=== PATIENT | male | born 1970 | race African-American/Black ===

== ENCOUNTER 2018-02-26 14:13 | Emergency (ER) | payer OTHER ==
[2018-02-26 15:45] LABS: Bilirubin,Urine NEG (Negative); Blood,Urine NEG (Negative); Color,Urine Yellow (Yellow); Mucus,Urine FEW /HPF; Protein,Urine <15 mg/dL mg/dL (Negative); Urobilinogen,Urine < 2.0 mg/dL (<2.0)
[2018-02-26 15:53] LABS: Basophils # (Auto) 0.1 K/mm3 (0.0-0.1); Eosinophils # (Auto) 0.1 K/mm3 (0.0-0.4); Eosinophils % (Auto) 0.9 % (0.0-4.3); Hematocrit 45.4 % (35.5-45.6); Hemoglobin 14.3 gm/dl (11.8-15.2); Lymphocytes # (Auto) 1.5 K/mm3 (1.2-5.4); Lymphocytes % (Auto) 18.4 % (13.4-35.0); Mean Corpuscular HGB Conc 32 % (32-34); Mean Corpuscular Volume 71 fl (84-94); Monocytes # (Auto) 0.5 K/mm3 (0.0-0.8); Monocytes % (Auto) 6.1 % (0.0-7.3); Platelet Count 384 K/mm3 (140-440); Red Blood Count 6.43 M/mm3 (3.65-5.03); Red Cell Distribution Width 14.6 % (13.2-15.2)
[2018-02-26 15:54] LABS: Mean Corpuscular Hemoglobin 22 pg (28-32)
[2018-02-26 15:56] LABS: Amphetamine Screen,Urine PRESUMPTIVE NEGATIVE; Benzodiazepines Screen,Urine PRESUMPTIVE NEGATIVE; Cannabinoid Screen,Urine PRESUMPTIVE NEGATIVE; Cocaine Screen,Urine PRESUMPTIVE NEGATIVE; Methadone Screen,Urine PRESUMPTIVE NEGATIVE; Opiate Screen,Urine PRESUMPTIVE NEGATIVE
[2018-02-26 16:05] LABS: BUN/Creatinine Ratio 13; Blood Urea Nitrogen 10 mg/dL (9-20); Calcium 9.7 mg/dL (8.4-10.2); Hemolysis Index 1
[2018-02-26] MEDS ORDERED: ZOFRAN ODT PO PRN (17:30)
[2018-02-26] MEDS ORDERED: HALDOL IM PRN (17:30)
[2018-02-26] MEDS ORDERED: ATIVAN IM PRN (17:30)
[2018-02-26] MEDS ORDERED: TYLENOL PO PRN (17:30)
--- NOTE | 2018-02-26 17:35 | Emergency Department Report ---
ED Psych HPI - General Chief Complaint: Psych Stated Complaint: MH Time Seen by Provider: 02/26/18 16:25 Source: patient, EMS (ems notes not available at time of chart dictation), RN notes reviewed Mode of arrival: Ambulatory Limitations: No Limitations - History of Present Illness Initial Comments: This is a 47-year-old male who is unknown to this provider previously who presents to the ER with a complaint of depression, suicidality, plan to overdose. His symptoms do not radiate anywhere, and he indicates no exacerbating or relieving factors. He denies headache, neck pain, chest pain, urinary symptoms. He denies access to guns, firearms. He reports that he is hungry and would like to eat. He also reports that his abdomen is "cramping" because of his anxiety. MD Complaint: suicidal ideation, feels depressed -: Gradual Associated Psychiatric Symptoms: suicidal ideation History of same: Yes Quality: constant Improves With: none Worsens With: none Associated Symptoms: denies: confusion, headache, shortness of breath, vomiting , syncope, insomnia If Self Harm: admits thoughts of, has plan, has acted on plan (in the past) - Related Data Allergies Allergy/AdvReac Type Severity Reaction Status Date / Time No Known Allergies Allergy Unverified 02/26/18 15:02 ED Review of Systems ROS: Stated complaint: MH Other details as noted in HPI Comment: All other systems reviewed and negative ED Past Medical Hx - Past Medical History Previous Medical History?: Yes Hx Psychiatric Treatment: Yes (Suicide attempt) - Surgical History Past Surgical History?: Yes Hx Appendectomy: Yes - Social History Smoking Status: Current Every Day Smoker Substance Use Type: Alcohol ED Physical Exam - General Limitations: No Limitations General appearance: alert, in no apparent distress - Head Head exam: Present: atraumatic, normocephalic - Eye Eye exam: Present: normal appearance, EOMI. Absent: nystagmus - ENT ENT exam: Present: normal exam, normal orophraynx, mucous membranes moist, normal external ear exam - Neck Neck exam: Present: normal inspection, full ROM - Respiratory Respiratory exam: Present: normal lung sounds bilaterally. Absent: respiratory distress - Cardiovascular Cardiovascular Exam: Present: regular rate, normal rhythm, normal heart sounds. Absent: bradycardia, tachycardia, irregular rhythm, systolic murmur, diastolic murmur, rubs, gallop - GI/Abdominal GI/Abdominal exam: Present: soft, normal bowel sounds. Absent: distended, tenderness, guarding, rebound, rigid, pulsatile mass - Rectal Rectal exam: Present: deferred - Extremities Exam Extremities exam: Present: normal inspection, full ROM, normal capillary refill. Absent: pedal edema, joint swelling, calf tenderness - Back Exam Back exam: Present: normal inspection, full ROM. Absent: tenderness, CVA tenderness (R), paraspinal tenderness, vertebral tenderness - Neurological Exam Neurological exam: Present: alert, oriented X3, CN II-XII intact, normal gait, other (Extraocular movements intact. Tongue midline. No facial droop. Facial sensation intact to light touch in the V1, V2, V3 distribution bilaterally. 5 and 5 strength in 4 extremities.. Sensation is intact to light touch in 4 extremities.). Absent: motor sensory deficit - Psychiatric Psychiatric exam: Present: suicidal ideation - Skin Skin exam: Present: warm, dry, intact, normal color. Absent: rash ED Course Vital Signs 02/26/18 02/26/18 15:02 15:31 Temperature 98.1 F Pulse Rate 69 Respiratory 18 18 Rate Blood Pressure 136/93 O2 Sat by Pulse 98 99 Oximetry ED Medical Decision Making - Lab Data Result diagrams: 02/26/18 15:34 02/26/18 15:34 Vital Signs 02/26/18 02/26/18 15:02 15:31 Temperature 98.1 F Pulse Rate 69 Respiratory 18 18 Rate Blood Pressure 136/93 O2 Sat by Pulse 98 99 Oximetry Lab Results 02/26/18 02/26/18 02/26/18 Range/Units 15:17 15:17 15:34 WBC (4.5-11.0) K/mm3 RBC (3.65-5.03) M/mm3 Hgb (11.8-15.2) gm/dl Hct (35.5-45.6) % MCV (84-94) fl MCH (28-32) pg MCHC (32-34) % RDW (13.2-15.2) % Plt Count (140-440) K/mm3 Lymph % (Auto) (13.4-35.0) % [place] % (Auto) (0.0-7.3) % Eos % (Auto) (0.0-4.3) % Baso % (Auto) (0.0-1.8) % Lymph # (1.2-5.4) K/mm3 [place] # (0.0-0.8) K/mm3 Eos # (0.0-0.4) K/mm3 Baso # (0.0-0.1) K/mm3 Seg Neutrophils % (40.0-70.0) % Seg Neutrophils # (1.8-7.7) K/mm3 Sodium (137-145) mmol/L Potassium (3.6-5.0) mmol/L Chloride (98-107) mmol/L Carbon Dioxide (22-30) mmol/L Anion Gap mmol/L BUN (9-20) mg/dL Creatinine (0.8-1.5) mg/dL Estimated GFR ml/min BUN/Creatinine Ratio % Glucose (75-100) mg/dL Calcium (8.4-10.2) mg/dL Urine Color Yellow (Yellow) Urine Turbidity Clear (Clear) Urine pH 6.0 (5.0-7.0) Ur Specific [place] 1.015 (1.003-1.030) Urine Protein <15 mg/dl (Negative) mg/dL Urine Glucose (UA) Neg (Negative) mg/dL Urine Ketones Tr (Negative) mg/dL Urine Blood Neg (Negative) Urine Nitrite Neg (Negative) Urine Bilirubin Neg (Negative) Urine Urobilinogen < 2.0 (<2.0) mg/dL Ur Leukocyte Esterase Neg (Negative) Urine WBC (Auto) 1.0 (0.0-6.0) /HPF Urine RBC (Auto) 1.0 (0.0-6.0) /HPF Urine Mucus Few /HPF Salicylates < 0.3 L (2.8-20.0) mg/dL Urine Opiates Screen Presumptive negative Urine Methadone Screen Presumptive negative Acetaminophen (10.0-30.0) ug/mL Ur Barbiturates Screen Presumptive negative Ur Phencyclidine Scrn Presumptive negative Ur Amphetamines Screen Presumptive negative U Benzodiazepines Scrn Presumptive negative Urine Cocaine Screen Presumptive negative U Marijuana (THC) Screen Presumptive negative Drugs of Abuse Note Disclamer Plasma/Serum Alcohol (0-0.07) % 02/26/18 02/26/18 02/26/18 Range/Units 15:34 15:34 15:34 WBC (4.5-11.0) K/mm3 RBC (3.65-5.03) M/mm3 Hgb (11.8-15.2) gm/dl Hct (35.5-45.6) % MCV (84-94) fl MCH (28-32) pg MCHC (32-34) % RDW (13.2-15.2) % Plt Count (140-440) K/mm3 Lymph % (Auto) (13.4-35.0) % [place] % (Auto) (0.0-7.3) % Eos % (Auto) (0.0-4.3) % Baso % (Auto) (0.0-1.8) % Lymph # (1.2-5.4) K/mm3 [place] # (0.0-0.8) K/mm3 Eos # (0.0-0.4) K/mm3 Baso # (0.0-0.1) K/mm3 Seg Neutrophils % (40.0-70.0) % Seg Neutrophils # (1.8-7.7) K/mm3 Sodium 141 (137-145) mmol/L Potassium 4.0 (3.6-5.0) mmol/L Chloride 101.3 (98-107) mmol/L Carbon Dioxide 27 (22-30) mmol/L Anion Gap 17 mmol/L BUN 10 (9-20) mg/dL Creatinine 0.8 (0.8-1.5) mg/dL Estimated GFR > 60 ml/min BUN/Creatinine Ratio 13 % Glucose 105 H (75-100) mg/dL Calcium 9.7 (8.4-10.2) mg/dL Urine Color (Yellow) Urine Turbidity (Clear) Urine pH (5.0-7.0) Ur Specific [place] (1.003-1.030) Urine Protein (Negative) mg/dL Urine Glucose (UA) (Negative) mg/dL Urine Ketones (Negative) mg/dL Urine Blood (Negative) Urine Nitrite (Negative) Urine Bilirubin (Negative) Urine Urobilinogen (<2.0) mg/dL Ur Leukocyte Esterase (Negative) Urine WBC (Auto) (0.0-6.0) /HPF Urine RBC (Auto) (0.0-6.0) /HPF Urine Mucus /HPF Salicylates (2.8-20.0) mg/dL Urine Opiates Screen Urine Methadone Screen Acetaminophen < 5.0 L (10.0-30.0) ug/mL Ur Barbiturates Screen Ur Phencyclidine Scrn Ur Amphetamines Screen U Benzodiazepines Scrn Urine Cocaine Screen U Marijuana (THC) Screen Drugs of Abuse Note Plasma/Serum Alcohol < 0.01 (0-0.07) % 02/26/18 Range/Units 15:34 WBC 8.3 (4.5-11.0) K/mm3 RBC 6.43 H (3.65-5.03) M/mm3 Hgb 14.3 (11.8-15.2) gm/dl Hct 45.4 (35.5-45.6) % MCV 71 L (84-94) fl MCH 22 L (28-32) pg MCHC 32 (32-34) % RDW 14.6 (13.2-15.2) % Plt Count 384 (140-440) K/mm3 Lymph % (Auto) 18.4 (13.4-35.0) % [place] % (Auto) 6.1 (0.0-7.3) % Eos % (Auto) 0.9 (0.0-4.3) % Baso % (Auto) 1.0 (0.0-1.8) % Lymph # 1.5 (1.2-5.4) K/mm3 [place] # 0.5 (0.0-0.8) K/mm3 Eos # 0.1 (0.0-0.4) K/mm3 Baso # 0.1 (0.0-0.1) K/mm3 Seg Neutrophils % 73.6 H (40.0-70.0) % Seg Neutrophils # 6.1 (1.8-7.7) K/mm3 Sodium (137-145) mmol/L Potassium (3.6-5.0) mmol/L Chloride (98-107) mmol/L Carbon Dioxide (22-30) mmol/L Anion Gap mmol/L BUN (9-20) mg/dL Creatinine (0.8-1.5) mg/dL Estimated GFR ml/min BUN/Creatinine Ratio % Glucose (75-100) mg/dL Calcium (8.4-10.2) mg/dL Urine Color (Yellow) Urine Turbidity (Clear) Urine pH (5.0-7.0) Ur Specific [place] (1.003-1.030) Urine Protein (Negative) mg/dL Urine Glucose (UA) (Negative) mg/dL Urine Ketones (Negative) mg/dL Urine Blood (Negative) Urine Nitrite (Negative) Urine Bilirubin (Negative) Urine Urobilinogen (<2.0) mg/dL Ur Leukocyte Esterase (Negative) Urine WBC (Auto) (0.0-6.0) /HPF Urine RBC (Auto) (0.0-6.0) /HPF Urine Mucus /HPF Salicylates (2.8-20.0) mg/dL Urine Opiates Screen Urine Methadone Screen Acetaminophen (10.0-30.0) ug/mL Ur Barbiturates Screen Ur Phencyclidine Scrn Ur Amphetamines Screen U Benzodiazepines Scrn Urine Cocaine Screen U Marijuana (THC) Screen Drugs of Abuse Note Plasma/Serum Alcohol (0-0.07) % - Medical Decision Making Differential diagnosis, including but not limited to: Depression, anxiety, mood disorder, medical clearance for psychiatric placement Assessment and plan: 47-year-old male with suicidality and depression. He is afebrile with reassuring vital signs and has an unremarkable neurologic and physical examination. His NIH score is 0. His Blane Coma Scale is 15. His laboratory studies and physical exam are within normal limits and acceptable. He is placed on a 1013. At this point in time, there is no obvious medical contraindication to psychiatric admission, evaluation, consultation. The crisis team has been informed. Critical care attestation.: If time is entered above; I have spent that time in minutes in the direct care of this critically ill patient, excluding procedure time. ED Disposition Clinical Impression: Medical clearance for psychiatric admission Disposition: [id number] PSY HOSP/PSY UNIT Is pt being admited?: No Does the pt Need Aspirin: No Condition: Good Referrals: PRIMARY CARE, [Primary Care Provider] - 3-5 Days
--- NOTE | 2018-02-27 13:30 | Consultation ---
History of Present Illness - Reason for Consult Consult date: 02/27/18 Reason for consult: Mental Health Evaluation Requesting physician: STEPAN JAMES - Chief Complaint Chief complaint: "I am suicidal" - History of Present Psychiatric Illness 47-year-old male who is unknown to this provider previously who presents to the ER with a complaint of depression, suicidality, with a plan to overdose. Today the patient is calm, cooperative, but sad during the assessment. He stated having Bipolar DO and LAURA. He stated that he have not slept in several days. He stated that he have not taken his medication in weeks. He "believe" that he takes Zoloft, but cannot mention anymore of his medications. He could not say what is triggering his depression and SI's. He stated that he was inpatient several months ago for a suicide attempt. He stated that his suicide plan will be to overdose. He denies HI's and AVH's. He stated having erratic sleep, anxiety, but denies a poor appetite. He denies recreational drug use and alcohol consumption (etoh). Medications and Allergies Allergies Allergy/AdvReac Type Severity Reaction Status Date / Time No Known Allergies Allergy Unverified 02/26/18 15:02 Home Medications Medication Instructions Recorded Confirmed Last Taken Type Unobtainable 02/26/18 02/26/18 Unknown History Active Meds: Active Medications Acetaminophen (Tylenol) 650 mg PO Q6HR PRN PRN Reason: Pain Haloperidol Lactate (Haldol) 5 mg IM Q6HR PRN PRN Reason: Agitation Last Admin: 02/26/18 21:55 Dose: 5 mg Lorazepam (Ativan) 2 mg IM Q4HR PRN PRN Reason: Agitation Last Admin: 02/26/18 21:54 Dose: 2 mg Ondansetron HCl (Zofran Odt) 4 mg PO Q6HR PRN PRN Reason: Nausea Past psychiatric history - Past Medical History Past Medical History: No medical history Past Surgical History: No surgical history - past Psychiatric treatment and history Psych: Bipolar psychiatric treatment history: Several inpatient psy settings. He could not confirm or deny a fam psy hx. - Social History Social history: Lives alone Mental Status Exam - Vital signs Last Vital Signs Temp 98.1 F 02/26/18 15:02 Pulse 69 02/26/18 15:02 Resp 18 06/24/18 15:31 BP 136/93 02/26/18 15:02 Pulse Ox 99 02/26/18 15:31 - Exam Narrative exam: MSE: Appearance: calm, cooperative Behavior: regular eye contact Speech: regular rate and tone Mood: "depressed" sad Affect: congruent to mood Thought Process: circumstantial Thought Content: denies HI's and AVH's. Motor Activity: ambulatory Cognition: A/O x3 Insight: fair Judgment: variable Results Result Diagrams: 02/26/18 15:34 02/26/18 15:34 Abnormal lab results 02/26/18 02/26/18 02/26/18 Range/Units 15:34 15:34 15:34 RBC (3.65-5.03) M/mm3 MCV (84-94) fl MCH (28-32) pg Seg Neutrophils % (40.0-70.0) % Glucose 105 H (75-100) mg/dL Salicylates < 0.3 L (2.8-20.0) mg/dL Acetaminophen < 5.0 L (10.0-30.0) ug/mL 02/26/18 Range/Units 15:34 RBC 6.43 H (3.65-5.03) M/mm3 MCV 71 L (84-94) fl MCH 22 L (28-32) pg Seg Neutrophils % 73.6 H (40.0-70.0) % Glucose (75-100) mg/dL Salicylates (2.8-20.0) mg/dL Acetaminophen (10.0-30.0) ug/mL All other labs normal. Assessment and Plan Assessment and plan: Impression: Unspecified Mood DO. Unspecified Anxiety DO. Today the patient is calm, cooperative, but sad during the assessment. UDS is negative. DDx: Bipolar DO, R/O MDD, LAURA Recommendation/Plan: Continue 1013 with placement to inpatient psy services. Start Seroquel 200 mg PO HS for mood and Vistaril 25 mg PO BID for anxiety. Discussed possible metabolic side effects of Seroquel with patient.
[2018-02-27] MEDS: VISTARIL PO SCH ×2 (14:42→22:18)
[2018-02-28] MEDS: VISTARIL PO SCH ×2 (09:45→23:06)
--- NOTE | 2018-02-28 12:07 | Progress Note ---
Subjective - Reason for Consult Consult date: 02/28/18 Reason for consult: Psychiatry Follow-up - Chief Complaint Chief complaint: "Hello" 47-year-old male who is unknown to this provider previously who presents to the ER with a complaint of depression, suicidality, with a plan to overdose. Today the patient is uncooperative during the assessment. Once the patient was informed that he was accepted at [facility], he refused to answer anymore questions. He put his head under the bed sheets and turned away from mt. Mental Status Exam - Vital signs Last Vital Signs Temp 98.0 F 02/27/18 20:20 Pulse 70 02/28/18 10:04 Resp 16 02/27/18 20:20 BP 117/76 02/28/18 10:04 Pulse Ox 98 02/28/18 10:04 - Exam Narrative exam: MSE: Appearance: uncooperative Behavior: poor eye contact Speech: regular rate and tone Mood: unable to assess Affect: unable to assess Thought Process: unable to assess Thought Content: acknowledge SI's Motor Activity: lying in bed Cognition: A/O x3 Insight: unable to assess Judgment: unable to assess Assessment and Plan Impression: Unspecified Mood DO. Unspecified Anxiety DO. Today the patient is calm, cooperative, but sad during the assessment. UDS is negative. DDx: Bipolar DO, R/O MDD, LAURA Recommendation/Plan: Continue 1013 with placement to inpatient psy services. Continue Seroquel 200 mg PO HS for mood and Vistaril 25 mg PO BID for anxiety. Discussed possible metabolic side effects of Seroquel with patient.
[2018-03-01] MEDS: VISTARIL PO SCH (10:16)
--- NOTE | 2018-03-01 14:10 | Progress Note ---
Subjective - Reason for Consult Consult date: 03/01/18 Reason for consult: Psychiatric Follow-up Evaluation - Chief Complaint Chief complaint: "I feel the same" Patient is a 47-year-old male who is unknown to this provider previously who presents to the ER with a complaint of depression, suicidality, with a plan to overdose. Today the patient is calm and cooperative during the assessment. Patient endorses intermittent psychosis. Mental Status Exam - Vital signs Last Vital Signs Temp 98 F 03/01/18 09:27 Pulse 92 H 03/01/18 08:50 Resp 16 03/01/18 11:03 BP 114/76 03/01/18 08:50 Pulse Ox 96 03/01/18 11:03 Assessment and Plan Impression: Unspecified Mood DO. Unspecified Anxiety DO. Today the patient is calm, cooperative, but sad during the assessment. UDS is negative. DDx: Bipolar DO, R/O MDD, LAURA Recommendation/Plan: 1. Continue 1013 with placement to inpatient psy services. 2. Increase Seroquel 300 mg PO HS for mood and Vistaril 25 mg PO BID for anxiety. Discussed possible metabolic side effects of Seroquel with patient. 3. Will continue to monitor mood, psychosis, sleep, appetite, compliance, and side effects.
[2018-03-01 17:35] VITALS: BP 118/79
== END 2018-03-01 19:45 ==
LOC: ED 14:13 → EEVIPCON 14:13 → ED 03-01 19:45
DX: F31.9 Bipolar disorder, unspecified (principal); F41.1 Generalized anxiety disorder; F17.200 Nicotine dependence, unspecified, uncomplicated; Z90.49 Acquired absence of other specified parts of digestive tract; Z79.899 Other long term (current) drug therapy
CPT/HCPCS: 36415; 80048; 80307; 81001; 85025; 96372; 99285; G0480; J1630; J2060; 80320; Q0177